=== PATIENT | female | born 1990 | race Hispanic/Latino ===

== ENCOUNTER 2021-11-13 22:13 | Emergency (ER) | payer OTHER ==
[~2021-11-13] VITALS: Ht 161.3 cm; Wt 79.4 kg
[2021-11-13] MEDS ORDERED: KETOROLAC TROMETHAMINE 30 MG/ML VIAL IV STA ×2 (22:40→23:36)
[2021-11-13] MEDS ORDERED: KETOROLAC TROMETHAMINE 30 MG/ML VIAL ONE (23:39)
[2021-11-14] MEDS ORDERED: NAPROSYN500 MG PO
[2021-11-14] MEDS ORDERED: CEFDINIR300 MG PO
[2021-11-14 00:05] VITALS: BP 126/68
== END 2021-11-14 00:05 | disposition home or self-care (01) ==
LOC: FSED 22:22
DX: R10.31 Right lower quadrant pain (principal); R30.0 Dysuria
CPT/HCPCS: 74176; 80048; 80076; 81003; 81025; 85025; 96372; 99283; J1885

== ENCOUNTER 2023-07-19 05:38 | Emergency (ER) | payer OTHER ==
[~2023-07-19] VITALS: Ht 160 cm; Wt 77.1 kg
[~2023-07-19 05:38] MED LIST: CEFDINIR300 MG PO; CYCLOBENZAPRINE10 MG PO; NAPROSYN500 MG PO; PREDNISONE50 MG PO
[2023-07-19] MEDS ORDERED: IOPAMIDOL 370 MG/ML 100 ML INFUS..BTL INJ ONE (06:51)
[2023-07-19] MEDS: FAMOTIDINE 20 MG/2 ML VIAL IV STA (07:34)
[2023-07-19] MEDS: KETOROLAC TROMETHAMINE 30 MG/ML VIAL IV STA (07:34)
[2023-07-19] MEDS: SODIUM CHLORIDE 0.9% 1000ML 1,000 ML IV SCH (07:35)
[2023-07-19] MEDS ORDERED: AMOXICILLIN500 MG PO (08:21)
[2023-07-19] MEDS ORDERED: BENZONATATE200 MG PO (08:21)
[2023-07-19] MEDS: HYDROCODONE/APAP 5MG-325MG TAB PO ONE (08:25)
[2023-07-19 08:26] VITALS: BP 130/58; PULSE 99; RESP 18
[2023-07-19 10:50] VITALS: O2SAT 98
== END 2023-07-19 10:40 | disposition home or self-care (01) ==
LOC: FSED 05:44
DX: R10.13 Epigastric pain (principal); R07.2 Precordial pain
CPT/HCPCS: 0223U; 71260; 74177; 80048; 80076; 81003; 81025; 82553; 83518; 84484; 85025; 87400; 93005; 99284; J1885; J7030; Q9967

== ENCOUNTER 2024-05-15 10:48 | Emergency (ER) | payer OTHER ==
[~2024-05-15] VITALS: Ht 160 cm; Wt 82.6 kg
[~2024-05-15 10:48] MED LIST changes: +AMOXICILLIN500 MG PO; +BENZONATATE200 MG PO
[2024-05-15] MEDS ORDERED: MACROBID 100 M100 MG PO (11:21)
[2024-05-15 11:29] VITALS: PULSE 74; RESP 16; TEMP 98.8; O2SAT 98
== END 2024-05-15 11:29 | disposition home or self-care (01) ==
LOC: FSED 10:52
DX: R30.0 Dysuria (principal); N39.0 Urinary tract infection, site not specified; R10.30 Lower abdominal pain, unspecified
CPT/HCPCS: 81003; 81025; 99283